=== PATIENT | female | born 1975 | race Two or more races ===

== ENCOUNTER 2024-11-30 13:16 | Emergency (ER) | payer SELFPAY ==
[2024-11-30 13:41] VITALS: BP 119/82; PULSE 68; RESP 20; TEMP 36.6; O2SAT 98
--- NOTE | 2024-11-30 14:06 | XR_ITS ---
Examination: Foot, left, 3 views Technique: AP, oblique, lateral views foot, 3 views Date and time of exam: November 30, 2024 1411 hours INDICATIONS: Patient fell 7 days ago with injury to the foot, foot pain. FINDINGS: No acute fracture No dislocation No foreign body IMPRESSION: No acute fracture
--- NOTE | 2024-11-30 14:06 | XR_ITS ---
Examination: Knee bilateral, 6 views Technique: Knee AP, lateral, oblique each knee total 6 views Date and time of exam: November 30, 2024 at 1411 hours INDICATIONS: Patient fell 7 days ago with injury to both knees, bilateral knee pain. 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
--- NOTE | 2024-11-30 14:06 | XR_ITS ---
EXAMINATION: Ankle, left 3 views . Technique: Ankle AP, oblique, lateral 3 views Date and time of exam: November 30, 2024 1411 hours INDICATIONS: Patient fell 7 days ago with injury to the ankle, ankle pain. FINDINGS: No ankle fracture or dislocation 8 mm plantar bony calcaneal spur IMPRESSION: No ankle fracture or dislocation
--- NOTE | 2024-11-30 14:09 | PD.EDRME ---
Rapid Medical Screening Exam RME Arrival date/time: 11/30/24 13:16 49-year-old female presents emerged part with complaints that she fell off of a ladder today patient reports bilateral knee pain left leg pain back pain and neck pain patient reports no head injury Chief Complaint: Fall Vital signs: Vital Signs Temperature 97.9 F 11/30/24 13:41 Pulse Rate 68 11/30/24 13:41 Respiratory Rate 20 11/30/24 13:41 Blood Pressure 119/82 11/30/24 13:41 Pulse Oximetry (%) 98 11/30/24 13:41 Oxygen Delivery Method Room Air 11/30/24 13:41
== END 2024-11-30 17:24 | disposition left against medical advice (07) ==
PROVIDERS: Emergency Provider Emergency Medicine
DX: M25.562 Pain in left knee (principal); M25.561 Pain in right knee; M54.2 Cervicalgia; M54.9 Dorsalgia, unspecified; Z53.29 Procedure and treatment not carried out because of patient's decision for other reasons
CPT/HCPCS: 73562; 73610; 73630; 99281